=== PATIENT | female | born 1945 | race Caucasian/White ===

== ENCOUNTER 2021-08-10 04:33 | Emergency (ER) | payer MEDICARE, OTHER | END 2021-08-10 06:00 | disposition left against medical advice (07) | LOC: ER1 04:33 | DX: R10.9 Unspecified abdominal pain (principal); R11.0 Nausea; I10 Essential (primary) hypertension; F17.210 Nicotine dependence, cigarettes, uncomplicated; Z88.0 Allergy status to penicillin; Z88.8 Allergy status to other drugs, medicaments and biological substances; R10.817 Generalized abdominal tenderness; Z79.02 Long term (current) use of antithrombotics/antiplatelets | CPT/HCPCS: 99282 ==